=== PATIENT | female | born 1980 | race Caucasian/White ===

== ENCOUNTER 2017-02-04 20:34 | Emergency (ER) | payer OTHER ==
--- NOTE | ~2017-02-04 | CR173 ---
[facility] A Service of [facility] & [facility] RADIOLOGY TEXT RESULTS PATIENT: JULISSA REIS LOCATION: SED : 82 UNIT #: [id number] AGE: [address]: Nguyen Gonzalez APRN SEX: F ORDER DR: [id number] [address] [address] [id number] E MR#: [id number] Acc #: [id number] NAME: JULISSA REIS : 1980 SEX: F STUDY DATE/TIME: 02/04/2017 20:36 UNIT: SED ROOM: STUDY DESCRIPTION: CR Knee 3 Views Rt Attending Physician: Nguyen Gonzalez A.P.R.N. Ordering Physician: Nguyen Solorio A.P.R.N. Primary Care Physician: Primary Care Physician No MEDICAL IMAGING REPORT This report is preliminary unless electronic signature is present. EXAM Right knee, 3 views COMPARISON None. INDICATIONS 36-year-old female with right knee pain and swelling anteriorly after falling yesterday. FINDINGS Bones are anatomically aligned. No radiopaque foreign body. No significant suprapatellar effusion. No evidence of acute fracture or degenerative change. IMPRESSION Normal exam. Dictated by... Rosales Burciaga M.D. THIS IS AN ELECTRONICALLY VERIFIED REPORT Rosales Burciaga M.D. at 02/08/2017 8:49 AM [facility] TD: 02/05/2017 02:41 JOB #: [id number] MEDICAL IMAGING REPORT Page 1 of 1
[~2017-02-04 20:34] MED LIST: FLEXERIL10 MG PO; LITHIUM; MOTRIN600 MG PO; NO MEDICATIONS; PAXIL; TYLENOL #3 PO
== END 2017-02-04 22:06 | disposition home or self-care (01) ==
LOC: SED 20:34
DX: S80.01XA Contusion of right knee, initial encounter (principal); F32.9 Major depressive disorder, single episode, unspecified; F17.210 Nicotine dependence, cigarettes, uncomplicated; W19.XXXA Unspecified fall, initial encounter; Y92.9 Unspecified place or not applicable
CPT/HCPCS: 29530; 73562; 99283